=== PATIENT | female | born 1960 | race Caucasian/White ===

== ENCOUNTER → 2019-01-23 | Outpatient (CLI) | payer OTHER, MEDICAID ==
--- NOTE | 2019-01-23 12:58 | REP ---
CHEST, TWO VIEWS: There is no evidence of acute infiltrate. No pleural effusion is seen. The heart is normal in size. The mediastinal silhouette is unremarkable. The visualized osseous structures are intact. IMPRESSION: No acute pulmonary disease. Electronically Signed by Anish Amaya MD 01/25/2019 12:58 P
== END ==
LOC: M RAD 10:21
PROVIDERS: ATTEND Nurse Practitioner Family
DX: R07.9 Chest pain, unspecified (principal)

== ENCOUNTER → 2019-01-23 | Outpatient (REF) | payer OTHER, MEDICAID ==
[2019-01-23 19:12] LABS: ALBUMIN 3.8 GM/DL (3.2-5.2); ALT/SGPT 27 U/L (12-78); BILIRUBIN,TOTAL 0.3 MG/DL (0.2-1.0); BLOOD UREA NITROGEN 16 MG/DL (7-18); CALCIUM LEVEL 9.1 MG/DL (8.8-10.2); CARBON DIOXIDE LEVEL 26 MEQ/L (21-32); CHLORIDE LEVEL 108 MEQ/L (98-107); CHOLESTEROL LEVEL 212 MG/DL (<200); CREATININE FOR GFR 0.85 MG/DL (0.55-1.30); FREE T4 0.96 NG/DL (0.76-1.46); GLOMERULAR FILTRATION RATE > 60.0 (>45); GLUCOSE, FASTING 91 MG/DL (70-100); HDL CHOLESTEROL 53 MG/DL (>40); LDL CHOLESTEROL 129 MG/DL (<100); NON-HDL-C 159 MG/DL; POTASSIUM SERUM 4.3 MEQ/L (3.5-5.1); SODIUM LEVEL 140 MEQ/L (136-145); TOTAL PROTEIN 7.6 GM/DL (6.4-8.2); TRIGLYCERIDES LEVEL 148 MG/DL (<150)
[2019-01-23 19:14] LABS: BASO # 0.1 10^3/uL (0.0-0.2); BASO % 0.7 % (0.0-1.0); EOS # 0.1 10^3/uL (0.0-0.50); EOS % 1.3 % (0.0-3.0); HEMATOCRIT 44.4 % (36.0-47.0); HEMOGLOBIN 14.5 g/dl (12.0-15.5); LYMPH # 2.6 10^3/uL (1.5-4.5); LYMPH % 38.2 % (24.0-44.0); MEAN CORPUSCULAR HEMOGLOBIN 31.5 pg (27.0-33.0); MEAN CORPUSCULAR HGB CONC 32.7 g/dl (32.0-36.5); MEAN CORPUSCULAR VOLUME 96.5 fl (80.0-96.0); MONO # 0.5 10^3/uL (0.0-0.8); MONO % 7.6 % (0.0-5.0); NEUTROPHILS # 3.5 10^3/uL (1.8-7.7); NEUTROPHILS % 52.1 % (36.0-66.0); PLATELET COUNT, AUTOMATED 278 10^3/uL (150-450); WHITE BLOOD COUNT 6.7 10^3/uL (4.0-10.0)
[2019-01-23 19:24] LABS: HEMOGLOBIN A1c 5.7 %
== END ==
LOC: M LAB REF 17:24
PROVIDERS: ATTEND Nurse Practitioner Family
DX: Z00.00 Encounter for general adult medical examination without abnormal findings (principal)

== ENCOUNTER → 2019-02-18 | Outpatient (REF) | payer OTHER, MEDICAID ==
[2019-02-18 19:40] LABS: HEMATOCRIT 43.8 % (36.0-47.0); HEMOGLOBIN 14.5 g/dl (12.0-15.5); MEAN CORPUSCULAR HEMOGLOBIN 30.8 pg (27.0-33.0); MEAN CORPUSCULAR HGB CONC 33.1 g/dl (32.0-36.5); PLATELET COUNT, AUTOMATED 306 10^3/uL (150-450); RED BLOOD COUNT 4.71 10^6/uL (4.00-5.40); WHITE BLOOD COUNT 8.3 10^3/uL (4.0-10.0)
[2019-02-18 19:46] LABS: BLOOD UREA NITROGEN 21 MG/DL (7-18); CALCIUM LEVEL 9.8 MG/DL (8.8-10.2); CARBON DIOXIDE LEVEL 26 MEQ/L (21-32); CHLORIDE LEVEL 107 MEQ/L (98-107); CREATININE FOR GFR 0.86 MG/DL (0.55-1.30); GLOMERULAR FILTRATION RATE > 60.0 (>45); GLUCOSE, FASTING 95 MG/DL (70-100); POTASSIUM SERUM 4.4 MEQ/L (3.5-5.1); SODIUM LEVEL 140 MEQ/L (136-145)
== END ==
LOC: M LAB REF 19:06 → M LABDRWAD 19:06
PROVIDERS: ATTEND Internal Medicine Cardiovascular Disease
DX: R07.9 Chest pain, unspecified (principal); R94.39 Abnormal result of other cardiovascular function study; R00.2 Palpitations

== ENCOUNTER → 2019-02-19 | Outpatient (CLI) | payer OTHER ==
--- NOTE | 2019-02-20 16:45 | REPMRS ---
Patient History The patient states she had a clinical breast exam in 02/2019. Patient is postmenopausal. Family history of colorectal cancer at age 50 or over in mother, colorectal cancer at age 50 or over in maternal aunt, colorectal cancer at age 50 or over in maternal aunt. Benign stereotactic core biopsy of the left breast. Digital Woman Screen Mammo: February 19, 2019 - Exam #: [id number] Bilateral CC and MLO view(s) were taken. Technologist: Africa James, Technologist Prior study comparison: June 21, 2016, bilateral digital mammo screening bilat, performed at [facility]. June 16, 2015, bilateral digital mammo screening bilat, performed at [facility]. FINDINGS: There are scattered fibroglandular densities. There is a needle biopsy marker clip in the left breast. There has been no change in the appearance of the mammogram from the prior studies. There is a mild amount of scattered fibroglandular density which is fairly symmetric. There is no interval development of dominant mass, architectural distortion, or grouped microcalcification suggestive of malignancy. 3-D tomosynthesis shows no additional findings. Assessment: BI-RADS/ACR category 2 mammogram. Benign Findings. Recommendation Routine screening mammogram of both breasts in 1 year (for women over age 40). This patient's Lifetime Breast Cancer Risk is estimated at 5.6 %. This mammogram was interpreted with the aid of an FDA-approved computer-aided dectection system. Electronically Signed By: Edward Kelley MD 02/20/19 [id number]
== END ==
LOC: M WHC 09:30 → EDUNIT# 10:00
PROVIDERS: ATTEND Nurse Practitioner Women's Health
DX: Z12.31 Encounter for screening mammogram for malignant neoplasm of breast (principal)

== ENCOUNTER → 2019-02-19 | Outpatient (REF) | payer OTHER ==
[2019-02-22 14:17] LABS: HPV HYBRID CAPTURE II Negative (Negative)
== END ==
LOC: M SFHCWAGY 09:37
PROVIDERS: ATTEND Nurse Practitioner Women's Health
DX: Z12.4 Encounter for screening for malignant neoplasm of cervix (principal)

== ENCOUNTER → 2020-02-13 | Outpatient (CLI) | payer OTHER | LOC: M LABSMTC 12:50 | PROVIDERS: ATTEND Orthopaedic Surgery | DX: Z11.59 Encounter for screening for other viral diseases (principal); Z03.818 Encounter for observation for suspected exposure to other biological agents ruled out | CPT/HCPCS: C9803; U0003 ==

== ENCOUNTER → 2020-02-25 | Outpatient (CLI) | payer OTHER ==
--- NOTE | 2020-03-11 14:42 | REPMRS ---
Patient History The patient states she had a clinical breast exam in February 2020.Patient is postmenopausal. Family history of colorectal cancer at age 50 or over in mother, colorectal cancer at age 50 or over in maternal aunt, colorectal cancer at age 50 or over in maternal aunt. Benign stereotactic core biopsy of the left breast. Digital Woman Screen Mammo: February 25, 2020 - Exam #: [id number] Bilateral CC and MLO view(s) were taken. Technologist: Jaelyn Xiao, Technologist Prior study comparison: February 19, 2019, bilateral digital woman screen mammo performed at [facility]. June 21, 2016, bilateral digital mammo screening bilat, performed at [facility]. June 16, 2015, bilateral digital mammo screening bilat, performed at [facility]. FINDINGS: There are scattered fibroglandular densities. The Volpara volumetric breast density category is:B. There is an ill defined medial retroareolar density in the left breast which appears more prominent than on prior examinations. This merits furthewr evaluation. There is a needle biopsy marker clip in the left breast. There has been no other change in the appearance of the mammogram from the prior studies. There is a mild amount of scattered fibroglandular density which is fairly symmetric. 3-D tomosynthesis shows no additional findings. Assessment: BI-RADS/ACR category 0 mammogram, Incomplete: Need additional imaging evaluation and/or prior mammograms for comparison. Recommendation Ultrasound and special view mammogram of the left breast. This patient's Lifetime Breast Cancer Risk is estimated at 5.4 %. This mammogram was interpreted with the aid of an FDA-approved computer-aided dectection system. Electronically Signed By: Edward Kelley MD 03/11/20 [id number]
== END ==
LOC: M WHC 15:36
PROVIDERS: ATTEND Nurse Practitioner Women's Health
DX: Z12.31 Encounter for screening mammogram for malignant neoplasm of breast (principal)

== ENCOUNTER → 2020-02-25 | Outpatient (REF) | payer OTHER | LOC: M LAB REF 08:00 | PROVIDERS: ATTEND Nurse Practitioner Women's Health | DX: Z12.4 Encounter for screening for malignant neoplasm of cervix (principal) ==

== ENCOUNTER → 2020-03-17 | Outpatient (CLI) | payer OTHER ==
--- NOTE | 2020-04-07 13:18 | REP ---
DIAGNOSTIC MAMMOGRAM LEFT BREAST WITH LEFT BREAST ULTRASOUND FINDINGS: Spot compression views of the left breast were performed in various projections and correlated with the recent mammogram of 02/25/2020. Comparison was made with multiple other prior exams, most recently 02/19/2019. A nodular opacity was suspected in the left breast on the recent exam. Todays spot compression views confirmed the presence of an oval ill-defined nodule measuring approximately 25 x 13 mm. This is located in the region of the lower inner left breast anteriorly about 2-3 cm from the nipple. This appears new. Real-time sonographic evaluation of the left breast was performed inferomedially throughout that quadrant of the left breast. No cystic or solid nodule was visualized. IMPRESSION: ACR 4 suspicious. Ill-defined oval nodular opacity is confirmed in the lower inner left breast measuring approximately 25 x 13 mm. There is no sonographic correlate identified. Stereotactic biopsy is recommended. ACR 4 suspicious. Send letter 4. Given the delay in our current assistant vice president and report turnaround, a preliminary report of this exam is written in the PACS notes and faxed to the referring clinician. CONSUELO
== END ==
LOC: M WHC 08:54
PROVIDERS: ATTEND Nurse Practitioner Women's Health
DX: R92.2 Inconclusive mammogram (principal)